=== PATIENT | male | born 1975 | race Caucasian/White ===

== ENCOUNTER → 2017-07-13 | Outpatient (CLI) | payer BC, OTHER ==
[~2017-07-13] MED LIST: CLR10 PO; SNG10 PO
--- NOTE | 2017-07-13 09:59 | DIAGNOSTIC IMAGING REPORT ---
R FOOT MIN 3 VIEWS CLINICAL HISTORY: RIGHT FOOT PAIN COMPARISON: None. DISCUSSION: No fractures or dislocations are visualized. 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 There are no erosive or destructive changes. The bony mineralization appears normal for age. IMPRESSION: 1. No fractures identified 2. No evidence of erosive disease Electronically signed by: Mk Tyler M.D. 07/13/2017 9:58 AM Dictated Date/Time: 07/13/2017 9:57 AM
== END | disposition home or self-care (01) ==
LOC: C.RDSM 08:00
PROVIDERS: ATTEND Family Medicine
DX: M79.671 Pain in right foot (principal)